=== PATIENT | female | born 1995 | race Caucasian/White ===

== ENCOUNTER 2019-01-22 05:39 | Emergency (ER) | payer BC ==
[2019-01-22 06:45] LABS: ADD MAN DIFF? NO
[2019-01-22 06:47] LABS: BASOPHILS % 0.2 % (0.0-2.0); HEMATOCRIT 40.6 % (37.0-47.0); LYMPHOCYTES # 2.4 10^3/ul (0.8-2.9); LYMPHOCYTES % 23.1 % (15.0-51.0); MEAN CORPUSCULAR HEMOGLOBIN 32.3 pg (29.0-33.0); MEAN CORPUSCULAR HGB CONC 34.5 g/dl (32.0-37.0); MEAN CORPUSCULAR VOLUME 93.5 fl (82.0-101.0); MEAN PLATELET VOLUME 11.1 fl (7.4-10.4); MONOCYTE # 0.3 10^3/ul (0.3-0.9); MONOCYTES % 2.9 % (0.0-11.0); NEUTROPHIL # 7.7 10^3/ul (1.6-7.5); NEUTROPHILS % 73.5 % (39.0-77.0); PLATELET COUNT 207 10^3/UL (140-415); RED BLOOD COUNT 4.34 10^6/ul (4.20-5.40); RED CELL DISTRIBUTION WIDTH 11.9 % (11.5-14.5)
[2019-01-22 06:47] LABS: WHITE BLOOD COUNT 10.5 10^3/ul (4.8-10.8)
[2019-01-22] MEDS: RALTEGRAVIR 400 MG TAB PO (06:49)
[2019-01-22] MEDS: EMTRICITABINE/TENOFOVIR TAB PO (06:49)
[2019-01-22] MEDS: metroNIDAZOLE 500 MG TAB PO (06:49)
[2019-01-22] MEDS: AZITHROMYCIN 500 MG TAB PO (06:56)
[2019-01-22] MEDS: CEFTRIAXONE 250 MG INJ IM (06:58)
[2019-01-22 07:08] LABS: ALANINE AMINOTRANSFERASE 16 IU/L (13-69); ALBUMIN 4.7 g/dl (3.3-4.9); ALKALINE PHOSPHATASE 47 IU/L (42-121); ANION GAP 15 (5-13); ASPARTATE AMINO TRANSFERASE 21 IU/L (15-46); BILIRUBIN,INDIRECT 0.3 mg/dl (0-1.1); BILIRUBIN,TOTAL 0.3 mg/dl (0.2-1.3); BLOOD UREA NITROGEN 10 mg/dl (7-20); CALCIUM 9.6 mg/dl (8.4-10.2); CARBON DIOXIDE 22 mmol/L (21-31); CHLORIDE 108 mmol/L (97-110); CREATININE 0.61 mg/dl (0.44-1.00); Estimated GFR > 60 mL/min (>60); GLUCOSE 103 mg/dl (70-220); POTASSIUM 4.1 mmol/L (3.5-5.1); SODIUM 145 mmol/L (135-144); TOTAL PROTEIN 8.6 g/dl (6.1-8.1)
== END 2019-01-22 08:31 | disposition home or self-care (01) ==
LOC: E/R 05:39
DX: T74.21XA Adult sexual abuse, confirmed, initial encounter (principal); Y07.59 Other non-family member, perpetrator of maltreatment and neglect
CPT/HCPCS: 36415; 80053; 84702; 85025; 96372; 99284-25

== ENCOUNTER 2019-03-14 12:00 | Emergency (ER) | payer BC | END 2019-03-14 14:32 | disposition home or self-care (01) | LOC: E/R 12:00 | DX: R19.7 Diarrhea, unspecified (principal) | CPT/HCPCS: 99282 ==